=== PATIENT | male | born 1965 | race Caucasian/White ===

== ENCOUNTER 2023-03-25 10:31 | Inpatient (IN) ==
--- NOTE | 2023-03-25 11:06 | Emergency Department Note ---
Impression & Plan Acute non-ST elevation myocardial infarction (NSTEMI), Chest pain ED Provider Note NAME: RICHARD MAHAJAN AGE: 57 SEX: M : 1965 ARRIVES VIA: Walk-In INFORMANT: Patient, ED PROVIDER(S): Baljeet Zhang MD CHIEF COMPLAINT: Chest pain, palpitations MEDICAL DECISION MAKING: Patient presents with the above symptoms in setting of prior history of A-fib and thought that he was having a bout of this this morning. IV was established and blood was obtained along with an EKG troponin and chest x-ray. EKG shows sinus rhythm with PVCs. Blood work shows a normal white count H&H and platelet count. Kidney function with creatinine 1.45. The patient was ordered some IV fluids. Mild transaminitis with AST and ALT 65 and 81 respectively. Bilirubin normal. High- sensitivity troponin 26.7. Repeat was 179. Given this concern and given the patient's history the patient was ordered a heparin drip. Patient was also ordered aspirin. I did speak with the on-call hospitalist service SUNIL Melo and the patient was admitted by Dr. Mcgowan. Critical Care: I have personally spent 35 minutes of critical care time in direct management of this patient. This includes bedside care, interpretation of diagnostic studies, and testing, discussion with consultants, patient, and family members, and other require inpatient management activities. This 35 minutes is in excess of all separately billable procedures. Discussion w/ other healthcare providers: SUNIL Rogers and Dr. Mcgowan inpatient medicine service Prior /Outside records reviewed: I reviewed a cardiology visit from Dr. Lu from September 02, 2022. Patient does have a known history of paroxysmal A-fib paroxysmal SVT. Patient's CHADS2 Vascor that time was 1. According to records has been on Eliquis for only brief time and is documented episode of A-fib was lasted up to only a couple of hours. Was suggested at the patient's more frequent episodes and certainly more prolonged episodes recommend indefinite anticoagulation therapy. Differential diagnosis: Premature contractions, electrolyte abnormality, cardiac dysrhythmia, thyroid dysfunction, infection, toxicologic, anxiety among others were considered. Diagnostics, as interpreted by me: ECG: Sinus rhythm with PVCs, rate of 90, normal intervals, normal axis. No ST elevations. Cardiac monitoring: An order was placed for continuous cardiac monitoring. The monitor shows a rate of 85 with sinus rhythm. Patient was placed on pulse oximetry Medical decision rules: Heart score Imaging studies: I informally interpreted the patient's chest x-ray shows no obvious pneumonia or pneumothorax with formal report to follow. HPI: Patient presents due to concern for palpitations and thinking that he may be in A-fib. The patient noticed this around 830 this morning. Patient states that he was doing his normal day-to-day where he was moving about when he developed some centralized chest pain that was uncomfortable. Patient [place] any radiation of symptoms the patient did feel diaphoretic no nausea or vomiting. Patient states that he started feel better about 30 minutes ago upon presenting here to the emergency department and do think that he may have been in A-fib. The patient does have a prior history but is not anticoagulated and states that he does take metoprolol and follows with Dr. Lu with cardiology. Patient denies any infectious symptoms no abdominal pain no lower extremity swelling. No prior DVT or PE PAST MEDICAL HISTORY: See Below PAST SURGICAL HISTORY: See Below SOCIAL HISTORY: See Below HOME MEDICATIONS: See Below ALLERGIES: See Below VITALS: See Below PHYSICAL EXAMINATION: GENERAL: NAD, non-toxic. EYE EXAM: Normal conjunctiva. PERRL, no anisocoria and EOM's grossly intact w/o pain. OROPHARYNX: Moist mucus membranes, grossly normal dentition. NECK: Supple, no nuchal rigidity, no adenopathy, non-tender. No signs of meningismus. FROM of the neck with good chin to chest and neck extension. No stridor. LUNGS: Clear to auscultation. Normal chest wall mechanics. HEART: NSR, no MRG. ABDOMEN: Abdomen soft, non-tender, no masses, no rebound or guarding. BACK: No CVA TTP. SKIN: No rashes and no bruising. UPPER EXTREMITIES: Upper extremities are grossly normal. LOWER EXTREMITIES: Grossly normal, no edema. NEURO EXAM: A&O x3, cranial nerves II-XII grossly intact, normal speech, moves all 4 extremities. 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: No Beliefs That Will Affect Care: None Current Living Situation: Alone Feels Safe at Home: Yes Assistive Devices: None Allergies Allergies Allergy/AdvReac Type Severity Reaction Status Date / Time No Known Drug Allergies Allergy Unknown Verified 03/29/19 09:50 contrast dye Allergy Mild Rash Uncoded 03/25/23 13:53 Home Meds Home Medications Medication Instructions Recorded Confirmed multivitamin (Daily Multi-Vitamin 1 tab PO DAILY 03/21/19 03/25/23 tablet) aspirin 81 mg tablet,delayed 81 mg PO DAILY 09/02/22 03/25/23 release (Adult Aspirin Regimen) atorvastatin 40 mg tablet 20 mg PO DAILY 09/02/22 03/25/23 metoprolol succinate 50 mg 50 mg PO DAILY 09/02/22 03/25/23 tablet,extended release 24 hr Previous Rx's Medication Instructions Recorded duloxetine 60 mg capsule,delayed 60 mg PO DAILY 90 days #90 caps 03/21/19 release (Cymbalta) metoprolol succinate 25 mg 25 mg PO DAILY #30 tabs 03/26/23 tablet,extended release 24 hr Results & Data (ED) Vital Signs Vital Signs - 24 hr 03/25/23 10:38 03/25/23 11:02 03/25/23 11:02 Temperature 36.9 C Temperature Source Temporal Artery Scan Pulse Rate 91 H Pulse Rate [Apical] Pulse Rate from SpO2 Sensor Respiratory Rate 20 Respiratory Effort / Characteristics Non-Labored Spontaneous Respiratory Depth Normal Blood Pressure 113/69 Blood Pressure [Right Arm] Blood Pressure Mean 83 Blood Pressure Mean [Right Arm] Pulse Oximetry 97 Oxygen Delivery Method Room Air Room Air Room Air Sepsis Recent Fever Within 48 Hours No Sepsis New/Unexplained Change in Mental Status No Sepsis Action Taken by Nursing No Action Required 03/25/23 11:03 03/25/23 11:03 03/25/23 11:04 Temperature Temperature Source Pulse Rate 88 Pulse Rate [Apical] 89 Pulse Rate from SpO2 Sensor 88 Respiratory Rate 22 24 Respiratory Effort / Characteristics Respiratory Depth Blood Pressure Blood Pressure [Right Arm] 109/79 Blood Pressure Mean Blood Pressure Mean [Right Arm] 89 Pulse Oximetry 97 97 Oxygen Delivery Method Room Air Room Air Room Air Sepsis Recent Fever Within 48 Hours Sepsis New/Unexplained Change in Mental Status Sepsis Action Taken by Nursing 03/25/23 11:30 03/25/23 11:30 Temperature Temperature Source Pulse Rate 81 Pulse Rate [Apical] Pulse Rate from SpO2 Sensor 81 Respiratory Rate 13 Respiratory Effort / Characteristics Respiratory Depth Blood Pressure 115/91 Blood Pressure [Right Arm] Blood Pressure Mean 101 Blood Pressure Mean [Right Arm] Pulse Oximetry 97 Oxygen Delivery Method Room Air Sepsis Recent Fever Within 48 Hours Sepsis New/Unexplained Change in Mental Status Sepsis Action Taken by Half-Way Medications Current Medication List: was personally reviewed by me Laboratory Data Attestation: I reviewed the patient's lab results. 03/26/23 03:46 03/26/23 03:40 Lab Results 03/25/23 03/25/23 Range/Units 11:01 12:31 WBC 6.74 (4.8-10.8) K/ul RBC 4.88 (4.70-6.10) M/uL Hgb 15.3 (14.0-18.0) g/dl Hct 45.9 (42.0-52.0) % MCV 94.1 (80.0-100.0) fL MCH 31.4 (25.0-34.0) pg MCHC 33.3 (32.0-36.0) g/dL RDW Std Deviation 44.3 (36.4-46.3) fL RDW Coeff of Teofilo 12.9 (11.5-14.5) % Plt Count 244 (130-400) K/uL MPV 10.0 (9.4-12.4) fL Immature Gran % (Auto) 0.6 % Neut % (Auto) 74.3 % Lymph % (Auto) 18.1 % [place] % (Auto) 5.2 % Eos % (Auto) 1.2 % Baso % (Auto) 0.6 % Neut # (Auto) 5.01 (1.40-6.50) K/uL Lymph # (Auto) 1.22 (1.20-3.40) K/uL [place] # (Auto) 0.35 (0.11-0.59) K/uL Eos # (Auto) 0.08 (0.00-0.50) K/uL Baso # (Auto) 0.04 (0.00-0.20) K/uL Immature Gran # (Auto) 0.04 (0.01-0.20) K/uL PT 10.7 (9.0-12.0) Seconds INR 1.0 (0.9-1.1) APTT 26 (21-31) Seconds PTT Ratio 0.9 Sodium 139 (136-145) mmol/L Potassium 4.2 (3.5-5.1) mmol/L Chloride 105 (98-107) mmol/L Carbon Dioxide 27 (21-32) mmol/L Anion Gap 7 (3-11) BUN 20 (6-23) mg/dl Creatinine 1.45 H (0.6-1.4) mg/dl Est Cr Clr Drug Dosing 66.9 ml/min Est GFR ( Amer) 61.1 ml/min Est GFR (Non-Af Amer) 52.7 ml/min BUN/Creatinine Ratio 13.8 (10-20) Glucose 168 H (70-99(Fasting)) mg/dl Calcium 9.5 (8.6-10.3) mg/dl Total Bilirubin 0.7 (0.2-1.0) mg/dl AST 65 H (13-39) U/L ALT 81 H (7-52) U/L Alkaline Phosphatase 63 (34-104) U/L Troponin I High Sens 26.7 H 179.9 H* D (0-20) pg/ml Total Protein 7.3 (6.0-8.3) gm/dl Albumin 4.5 (3.4-5.0) gm/dl Globulin 2.8 (2.5-4.0) gm/dl Albumin/Globulin Ratio 1.6 (0.9-2) Administered Medications Discontinued Medications Aspirin (Aspirin Chew 324 Mg) 324 mg PO NOW STA Stop: 03/25/23 13:56 Last Admin: 03/25/23 14:04 Dose: 324 mg Documented By: DERICK Aspirin (Aspirin 81 Mg Ectab) 81 mg PO DAILY NIMA Stop: 04/25/23 08:59 Last Admin: 03/26/23 07:17 Dose: 81 mg Documented By: YVROSE Atorvastatin Calcium (Atorvastatin 20 Mg Tab) 20 mg PO DAILY [facility] Stop: 04/25/23 08:59 Last Admin: 03/26/23 07:17 Dose: 20 mg Documented By: YVROSE Fentanyl Citrate (Fentanyl Citrate Pf 100 Mcg/2 Ml Vial) Confirm Administered Dose 100 mcg .ROUTE .STK-MED ONE Stop: 03/26/23 10:32 Last Increment: 03/26/23 11:06 Dose: 25 mcg Documented By: BILLY Heparin Sodium (Porcine) (Heparin Sod (Porcine) 1000 Unit/Ml) 3,000 units IV NOW ONE Stop: 03/25/23 21:01 Last Admin: 03/25/23 21:17 Dose: 3,000 units Documented By: RABIA Co-signed By: NEVAEH Heparin Sodium (Porcine) (Heparin (Porcine) 1000 Unit/Ml 10 Ml (Telegraph Installer Use Only)) Confirm Administered Dose 10,000 units .ROUTE .STK-MED ONE Stop: 03/26/23 10:31 Last Admin: 03/26/23 11:06 Dose: Not Given Documented By: BILLY Heparin Sodium/Sodium Chloride (Heparin In Nss Infusion 1000 Unit/500 Ml (2 U/Ml) Bag) Confirm Administered Dose 3,000 units IV .STK-MED ONE Stop: 03/26/23 10:33 Last Admin: 03/26/23 11:07 Dose: 3,000 units Documented By: BILLY Heparin Sodium/Dextrose (Heparin Sodium/Dextrose) 25,000 units in 500 mls @ 23 mls/hr IV .[id number] [facility]; Protocol Stop: 04/24/23 13:59 Last Titration: 03/26/23 11:34 Dose: Infused Documented By: YVROSE Co-signed By: RACHEL Titration: 03/26/23 10:17 Dose: 0 units/hr, 0 mls/hr Documented By: YVROSE Co-signed By: MAKSIM Titration: 03/26/23 04:44 Dose: 1,250 units/hr, 25 mls/hr Documented By: RABIA Co-signed By: NEVAEH Titration: 03/25/23 21:17 Dose: 1,150 units/hr, 23 mls/hr Documented By: PICTURE FRAME MAKER Co-signed By: NEVAEH Titration: 03/25/23 19:11 Dose: 1,000 units/hr, 20 mls/hr Documented By: PICTURE FRAME MAKER Co-signed By: YVROSE Admin: 03/25/23 14:05 Dose: 1,000 units/hr, 20 mls/hr Documented By: DERICK Co-signed By: RENETTA Sodium Chloride (Nss) 1,000 mls @ 75 mls/hr IV .[id number] ONE Stop: 03/26/23 10:06 Last Infusion: 03/26/23 10:17 Dose: Infused Documented By: Admin: 03/25/23 21:21 Dose: 75 mls/hr Documented By: RABIA Ioversol (Optiray 350) Confirm Administered Dose 1 ml .ROUTE .STK-MED ONE Stop: 03/26/23 10:54 Last Admin: 03/26/23 11:07 Dose: 90 ml Documented By: BILLY Metoprolol Succinate (Metoprolol Succ 50mg Ext Rel Tab) 50 mg PO DAILY NIMA Stop: 04/25/23 08:59 Last Admin: 03/26/23 07:17 Dose: 50 mg Documented By: YVROSE Midazolam HCl (Midazolam Hcl 1 Mg/Ml 2ml Vial) Confirm Administered Dose 2 mg .ROUTE .STK-MED ONE Stop: 03/26/23 10:32 Last Increment: 03/26/23 11:07 Dose: 1 mg Documented By: BILLY Nicardipine HCl (Nicardipine Hcl Inj 2.5 Mg/Ml 10 Ml Amp) Confirm Administered Dose 25 mg .ROUTE .STK-MED ONE Stop: 03/26/23 10:31 Last Admin: 03/26/23 11:06 Dose: 25 mg Documented By: BILLY Nitroglycerin/Dextrose (Nitroglycerin/D5w 100mcg/Ml 20ml Syr) Confirm Administered Dose 2,000 mcg .ROUTE .STK-MED ONE Stop: 03/26/23 10:33 Last Admin: 03/26/23 11:07 Dose: 2,000 mcg Documented By: BILLY Imaging Data Radiologist's Impression: Chest X-Ray 03/25/23 11:01 XR chest 1V portable HISTORY: 57 years-old Male afib? Acute chest pain with tachycardia COMPARISON: None TECHNIQUE: AP view of the chest FINDINGS: Cardiac silhouette is enlarged. No pneumothorax, pleural effusion or airspace consolidation. The bones of the chest appear grossly intact. IMPRESSION: Cardiomegaly without acute process. ACT 112: Negative or not required by law. The above report was generated using voice recognition software. It may contain grammatical, syntax or spelling errors. Electronically signed by: Farooq Gil M.D. 03/25/2023 11:29 AM Discharge Plan Visit Data Chief Complaint: Arrhythmia/Palpitations Stated Complaint: thinks he is in afib ED Provider: Baljeet Zhang Discharge Problem: Acute non-ST elevation myocardial infarction (NSTEMI), Chest pain Patient Disposition: Admitted As Inpatient Discharge Instructions Interventions: ED Discharge Assessment Last Done: 03/25/23 14:43 Discharge Problem: Chest pain Qualifiers: Chest pain type: unspecified Qualified Code(s): R07.9 - Chest pain, unspecified
[2023-03-25 11:22] LABS: Basophils # (auto) 0.04 K/uL (0.00-0.20); Basophils % (auto) 0.6 %; Eosinophils # (auto) 0.08 K/uL (0.00-0.50); Eosinophils % (auto) 1.2 %; Hematocrit (blood only) 45.9 % (42.0-52.0); Hemoglobin 15.3 g/dl (14.0-18.0); Immature Granulocytes # (auto) 0.04 K/uL (0.01-0.20); Immature Granulocytes % (auto) 0.6 %; Lymphocytes # (auto) 1.22 K/uL (1.20-3.40); Lymphocytes % (auto) 18.1 %; Mean Corpuscular Hemoglobin 31.4 pg (25.0-34.0); Mean Corpuscular Hgb Conc 33.3 g/dL (32.0-36.0); Mean Corpuscular Volume 94.1 fL (80.0-100.0); Monocytes # (auto) 0.35 K/uL (0.11-0.59); Monocytes % (auto) 5.2 %; Neutrophils # (auto) 5.01 K/uL (1.40-6.50); Neutrophils % (auto) 74.3 %; Platelet Count 244 K/uL (130-400); RDW Coefficient of Variation 12.9 % (11.5-14.5); RDW Standard Deviation 44.3 fL (36.4-46.3); Red Blood Count 4.88 M/uL (4.70-6.10); White Blood Count 6.74 K/ul (4.8-10.8)
--- NOTE | 2023-03-25 11:30 | XRay Report ---
XR chest 1V portable HISTORY: 57 years-old Male afib? Acute chest pain with tachycardia COMPARISON: None TECHNIQUE: AP view of the chest FINDINGS: Cardiac silhouette is enlarged. No pneumothorax, pleural effusion or airspace consolidation. The bone s of the chest appear grossly intact. IMPRESSION: Cardiomegaly without acute process. ACT 112: Negative or not required by law. The above report was generated using voice recognition software. It may contain grammatical, syntax o r spelling errors. Electronically signed by: Farooq Gil M.D. 03/25/2023 11:29 AM
[2023-03-25 11:36] LABS: Albumin Globulin Ratio 1.6 (0.9-2); Albumin Level 4.5 gm/dl (3.4-5.0); BUN Creatinine Ratio 13.8 (10-20); Bilirubin,Total 0.7 mg/dl (0.2-1.0); Calcium 9.5 mg/dl (8.6-10.3); Creatinine Clr Calc Pharmacy 66.9 ml/min; Est GFR (African American) 61.1 ml/min; Est GFR (Non-African American) 52.7 ml/min; Globulin 2.8 gm/dl (2.5-4.0); Potassium 4.2 mmol/L (3.5-5.1); Total Protein 7.3 gm/dl (6.0-8.3)
[2023-03-25 11:43] LABS: Troponin I High Sensitivity 26.7 pg/ml (0-20)
[2023-03-25 11:49] LABS: Partial Thromboplastin Ratio 0.9; Partial Thromboplastin Time 26 Seconds (21-31); Prothrombin Time 10.7 Seconds (9.0-12.0)
[2023-03-25] MEDS ORDERED: Heparin IV Adult Wt-Based Low-Dose *NO* INITIAL Bolus Protocol IV STA (13:29)
[2023-03-25] MEDS ORDERED: ASPIRIN CHEW 324 MG PO STA (13:55)
[2023-03-25] MEDS ORDERED: HEPARIN SODIUM/DEXTROSE 25,000 UNITS/500 ML BAG IV SCH (14:00)
[2023-03-25] MEDS ORDERED: ACETAMINOPHEN 325 MG TAB PO PRN (14:55)
[2023-03-25] MEDS ORDERED: NITROGLYCERIN SL 0.4 MG/TAB TAB SL PRN (14:55)
--- NOTE | 2023-03-25 15:19 | Cardiology Consultation ---
Date of Consultation March 25, 2023 Assessment & Plan (1) Paroxysmal SVT (supraventricular tachycardia): (2) Chest discomfort: (3) Elevated troponin: Plan 1. Tachycardia: He is describing a rapid heart rate which to him feels similar to prior episodes. He apparently has a history of SVT and atrial fibrillation but he cannot distinguish them, perhaps SVT leads to atrial fibrillation. Since this episode was not recorded I am not sure what it was. It was relatively dionte ef so I do not think anticoagulation is necessary and he seems to have quite infrequent episodes (a few years in between). I do not think we need any specific treatment for his tachycardia at the moment although with the rate ablation is not unreasonable but he has declined that in the past. I did not raise that issue with him today, in part because I do not know what type of arrhythmia we are dealing with. It would be difficult to monitor (it would require an implantable loop recorder). 2. Chest discomfort: His chest discomfort is suggestive of angina. It may simply be rate related although it could represent ischemia in a setting of coronary artery disease. He has had a negative stress test in the past however there are false negatives on those tests and if he has mild to moderate coronary disease a standard stress test may not be sufficient to bring out ischemia. I think this should be evaluated further, especially in view of his elevated troponin. I would strongly consider catheterization tomorrow and I will keep him n.p.o. and make a final decision in the morning. 3. Elevated troponin: Second troponin is elevated, he does not have an infarction pattern on his electrocardiogram so I do not think this is an ischemic event and it appears most likely that it is demand ischemia however that could be in the setting of underlying coronary disease since he does have risk factors. I would trend the troponins to see what the profile looks like. History of Present Illness Reason for Consultation: Elevated troponin, possible arrhythmia Attending Physician: Mary Mcgowan MD History of Present Illness This is a 57-year-old male who has a long history of of arrhythmias, hypertension and dyslipidemia but no known coronary artery disease to my knowledge. He is followed by Dr. Lu in the office. He has had a history of SVT with heart rates in excess of 200 bpm and has received adenosine for termination of his arrhythmia. With these rapid heart rates he has had elevated troponins and had a nuclear stress test on November 10, 2019 at [facility] which was negative for ischemia. I am not sure of the mechanism of this arrhythmia. According to records he also has a history of paroxysmal atrial fibrillation, evidently these have been relatively brief episodes and with a [id number] score of 1 for hypertension he has not been on anticoagulation. He presented to the emergency room this morning having symptoms which he felt were compatible with atrial fibrillation. He noticed this around 830 this morning and then he developed some central chest discomfort when he began to be active. He did feel better before initial evaluation in the emergency room. Evaluation here includes an electrocardiogram in the emergency room which shows sinus rhythm at 90 bpm with 2 premature ventricular beats and borderline inferior ST-T abnormalities. Laboratory studies include a slightly elevated creatinine of 1.45 and an initial high-sensitivity troponin which was only slightly elevated to 27 however increased to 180 an hour and a half later. Blood pressure and heart rate have been well-controlled during his stay in the emergency room. A chest x-ray today is unremarkable. At the time of my evaluation he is feeling well. He describes the palpitations as being a very rapid rhythm, he is not sure if it was irregular or regular, he could see his chest vibrating with the beats. It was reminiscent of what he has experienced in the past and he tells me he cannot differentiate between SVT and atrial fibrillation. He does confirm that by the time he got to the hospital the episode had mostly resolved. He did have chest discomfort during the event but only for 15 minutes or little bit longer, the chest discomfort had resolved before the tachycardia did. He has had no further chest discomfort or palpitations in the emergency room. He does not have exertional palpitations although he does not do any formal exercise he does not have any exertional chest discomfort or shortness of breath and his activities are not limited. Allergies Allergy/AdvReac Type Severity Reaction Status Date / Time No Known Drug Allergies Allergy Unknown Verified 03/29/19 09:50 contrast dye Allergy Mild Rash Uncoded 03/25/23 13:53 Home Medications Medication Instructions Recorded Confirmed Type duloxetine 60 mg capsule,delayed 60 mg PO DAILY 90 days #90 caps 03/21/19 03/25/23 Rx release (Cymbalta) multivitamin (Daily Multi-Vitamin 1 tab PO DAILY 03/21/19 03/25/23 History tablet) aspirin 81 mg tablet,delayed 81 mg PO DAILY 09/02/22 03/25/23 History release (Adult Aspirin Regimen) atorvastatin 40 mg tablet 20 mg PO DAILY 09/02/22 03/25/23 History metoprolol succinate 50 mg 50 mg PO DAILY 09/02/22 03/25/23 History tablet,extended release 24 hr Patient History Medical History Meralgia paresthetica Sleep apnea Dyslipidemia Hypertension Paroxysmal atrial fibrillation Paroxysmal SVT (supraventricular tachycardia) Surgical History Hx of tonsillectomy History of knee surgery History of shoulder surgery Family History Father Prostate cancer Social History Smoking Status: Never smoker Feels Safe at Home: Yes Review of Systems Review of Systems: All systems reviewed & are unremarkable except as noted in HPI & below Physical Exam Physical Exam: Constitutional: Alert, cooperative and in no distress. HEENT: Unremarkable Neck: No jugular venous distention, carotid pulses are normal and equal bilaterally without bruits. Pulmonary: Clear to auscultation bilaterally. Cardiac: Regular rhythm with no murmur, gallop or rub. Abdomen: Soft, nontender with normal bowel sounds. Extremities: No edema. Distal pulses intact. Neurologic: No focal findings. Gait is steady. Skin: No rash, ecchymoses or petechiae. Results & Data Vital Signs (Past 12 Hours) Vital Signs Temp Pulse Pulse Resp BP BP Pulse Ox 03/25/23 15:00 71 24 99 03/25/23 15:00 127/92 03/25/23 14:43 03/25/23 14:31 125/95 03/25/23 14:30 68 18 99 03/25/23 14:13 72 03/25/23 14:00 113/80 03/25/23 14:00 76 17 94 03/25/23 13:30 74 16 03/25/23 13:30 111/74 03/25/23 13:00 80 24 98 03/25/23 13:00 107/86 03/25/23 12:37 77 03/25/23 12:30 133/94 03/25/23 12:30 78 21 98 03/25/23 12:00 82 19 97 03/25/23 12:00 118/87 03/25/23 11:30 81 13 97 03/25/23 11:30 115/91 03/25/23 11:04 88 24 97 03/25/23 11:03 89 22 109/79 97 03/25/23 11:03 03/25/23 11:02 03/25/23 11:02 03/25/23 10:38 36.9 C 91 H 20 113/69 97 O2 Del Method 03/25/23 15:00 Room Air 03/25/23 15:00 03/25/23 14:43 Room Air 03/25/23 14:31 03/25/23 14:30 Room Air 03/25/23 14:13 03/25/23 14:00 03/25/23 14:00 Room Air 03/25/23 13:30 03/25/23 13:30 03/25/23 13:00 Room Air 03/25/23 13:00 03/25/23 12:37 03/25/23 12:30 03/25/23 12:30 Room Air 03/25/23 12:00 Room Air 03/25/23 12:00 03/25/23 11:30 Room Air 03/25/23 11:30 03/25/23 11:04 Room Air 03/25/23 11:03 Room Air 03/25/23 11:03 Room Air 03/25/23 11:02 Room Air 03/25/23 11:02 Room Air 03/25/23 10:38 Room Air Laboratory Results Cardiac Enzymes 03/25/23 03/25/23 Range/Units 11:01 12:31 AST 65 H (13-39) U/L Troponin I High Sens 26.7 H 179.9 H* D (0-20) pg/ml Coagulation 03/25/23 Range/Units 11:01 PT 10.7 (9.0-12.0) Seconds APTT 26 (21-31) Seconds CBC 03/25/23 Range/Units 11:01 WBC 6.74 (4.8-10.8) K/ul RBC 4.88 (4.70-6.10) M/uL Hgb 15.3 (14.0-18.0) g/dl Hct 45.9 (42.0-52.0) % Plt Count 244 (130-400) K/uL Neut # (Auto) 5.01 (1.40-6.50) K/uL Lymph # (Auto) 1.22 (1.20-3.40) K/uL [place] # (Auto) 0.35 (0.11-0.59) K/uL Eos # (Auto) 0.08 (0.00-0.50) K/uL Baso # (Auto) 0.04 (0.00-0.20) K/uL Comprehensive Metabolic Panel 03/25/23 Range/Units 11:01 Sodium 139 (136-145) mmol/L Potassium 4.2 (3.5-5.1) mmol/L Chloride 105 (98-107) mmol/L Carbon Dioxide 27 (21-32) mmol/L BUN 20 (6-23) mg/dl Creatinine 1.45 H (0.6-1.4) mg/dl Glucose 168 H (70-99(Fasting)) mg/dl Calcium 9.5 (8.6-10.3) mg/dl AST 65 H (13-39) U/L ALT 81 H (7-52) U/L Alkaline Phosphatase 63 (34-104) U/L Total Protein 7.3 (6.0-8.3) gm/dl Albumin 4.5 (3.4-5.0) gm/dl Intake and Output 03/25/23 03/25/23 03/25/23 06:59 14:59 22:59 Other: Weight 103.3 kg Weight Measurement Method Chair Scale Patient Weight 03/26/23 06:59 Weight 103.3 kg Diagnostic Findings Echocardiogram: I reviewed his echocardiogram as it was being done in the emergency room, the left ventricular function appears normal with no significant abnormalities otherwise. PG Care Time/CCT Total # of Minutes Spent Total Time Spent with Patient: Total time spent is greater than 50% in coordination of care (as documented) at patient's floor/unit and/or counseling patient: Coding Level of Care Code 12970 IN/OBS CONSULT LVL 4,60M Diagnoses Paroxysmal SVT (supraventricular tachycardia) I47.1 Chest discomfort R07.89 Elevated troponin R79.89
--- NOTE | 2023-03-25 15:23 | History & Physical Report ---
Date of Service March 25, 2023 Assessment & Plan (1) Elevated troponin: (2) Chest discomfort: Plan: Admit to telemetry Patient presenting for evaluation of chest discomfort, palpitations, diaphoresis. Symptoms self resolved after 2 hours. History of paroxysmal atrial fibrillation. In the ED, EKG showed NSR with PVCs. Patient hemodynamically stable. HS troponin 26.7 --> 179.9 Given troponin elevation, patient started on IV heparin in the ED Possible NSTEMI Continue to trend troponin, resting echo Continue home beta-rakesh Cardiology consult (patient follows with [facility] [place]) (3) Paroxysmal atrial fibrillation: (4) Paroxysmal SVT (supraventricular tachycardia): Plan: History of paroxysmal atrial fibrillation and paroxysmal SVT controlled with metoprolol Currently not anticoagulated due to short, infrequent episodes of atrial fibrillation (5) Dyslipidemia: Plan: Continue statin DVT PROPHYLAXIS On IV heparin Patient seen in collaboration with Dr. Mcgowan. I spent a total of 75minutes coordinating, documenting, and providing care for this patient excluding time spent in the performance of separately billed services. This included personally reviewing all current laboratories and imaging studies, medication reconciliation, outpatient chart review, and discussion with specialists. Admission and Anticipated Discharge Date Admission Date: March 25, 2023 History of Present Illness Chief Complaint: Chest discomfort Primary Care Provider: Kamran Singh, DO 57-year-old male with PMH HLD, prediabetes, untreated SUZAN, paroxysmal atrial fibrillation not anticoagulated, paroxysmal SVT, and other problems listed below who presents to the ED for evaluation of chest discomfort. History is obtained from the patient and review of outpatient PCP and cardiology records. Patient reports that while he was at work this morning, he developed a midsternal chest discomfort with associated diaphoresis. Patient reports symptoms were similar to when he has been in atrial fibrillation in the past however he typically does not have diaphoresis. Patient reports associated palpitations. Symptoms lasted for about 2 hours and then presented to the ED for further evaluation. Patient also reports associated nausea. Denies lightheadedness and dizziness. No other recent illnesses, fevers, chills. He denies abdominal pain, vomiting, diarrhea. No urinary symptoms. Symptoms self resolved upon arrival to the ED. In the ED, patient is hemodynamically stable. EKG shows NSR with PVCs. Initial HS troponin 26.7 --> 179.9. Patient was given full dose aspirin and started on heparin ip. Allergies Allergy/AdvReac Type Severity Reaction Status Date / Time No Known Drug Allergies Allergy Unknown Verified 03/29/19 09:50 contrast dye Allergy Mild Rash Uncoded 03/25/23 13:53 Home Medications Medication Instructions Recorded Confirmed Type duloxetine 60 mg capsule,delayed 60 mg PO DAILY 90 days #90 caps 03/21/19 03/25/23 Rx release (Cymbalta) multivitamin (Daily Multi-Vitamin 1 tab PO DAILY 03/21/19 03/25/23 History tablet) aspirin 81 mg tablet,delayed 81 mg PO DAILY 09/02/22 03/25/23 History release (Adult Aspirin Regimen) atorvastatin 40 mg tablet 20 mg PO DAILY 09/02/22 03/25/23 History metoprolol succinate 50 mg 50 mg PO DAILY 09/02/22 03/25/23 History tablet,extended release 24 hr Past Med/Surg History Medical History Meralgia paresthetica Sleep apnea Dyslipidemia Hypertension Paroxysmal atrial fibrillation Paroxysmal SVT (supraventricular tachycardia) Surgical History Hx of tonsillectomy History of knee surgery History of shoulder surgery Family History Father Prostate cancer Social History Smoking Status: Never smoker Feels Safe at Home: Yes Physical Exam Constitutional: WD/WN, vitals as above Eyes: PERRL, conjunctivae normal, anicteric sclerae ENMT: external ear and nose normal, oropharynx normal Respiratory: normal respiratory effort, lungs clear to auscultation Cardiovascular: Rate/Rhythm: regular rate and regular rhythm Vessels: normal peripheral pulses Extremities: no edema Gastrointestinal (Abdomen): normal bowel sounds, soft, nontender, no hepatosplenomegaly Musculoskeletal: no cyanosis or clubbing, extremities motor strength 5/5 Skin: no rashes, warm and dry Neurologic: PERRL, EOMI, accommodation nl, no face palsy, no dysarthria Psychiatric: A+Ox3, euthymic affect Results & Data Results & Data Vital Signs (Past 12 Hours) Vital Signs Temp Pulse Pulse Resp BP BP Pulse Ox 03/25/23 15:00 71 24 99 03/25/23 15:00 127/92 03/25/23 14:43 03/25/23 14:31 125/95 03/25/23 14:30 68 18 99 03/25/23 14:13 72 03/25/23 14:00 113/80 03/25/23 14:00 76 17 94 03/25/23 13:30 74 16 03/25/23 13:30 111/74 03/25/23 13:00 80 24 98 03/25/23 13:00 107/86 03/25/23 12:37 77 03/25/23 12:30 133/94 03/25/23 12:30 78 21 98 03/25/23 12:00 82 19 97 03/25/23 12:00 118/87 03/25/23 11:30 81 13 97 03/25/23 11:30 115/91 03/25/23 11:04 88 24 97 03/25/23 11:03 89 22 109/79 97 03/25/23 11:03 03/25/23 11:02 03/25/23 11:02 03/25/23 10:38 36.9 C 91 H 20 113/69 97 O2 Del Method 03/25/23 15:00 Room Air 03/25/23 15:00 03/25/23 14:43 Room Air 03/25/23 14:31 03/25/23 14:30 Room Air 03/25/23 14:13 03/25/23 14:00 03/25/23 14:00 Room Air 03/25/23 13:30 03/25/23 13:30 03/25/23 13:00 Room Air 03/25/23 13:00 03/25/23 12:37 03/25/23 12:30 03/25/23 12:30 Room Air 03/25/23 12:00 Room Air 03/25/23 12:00 03/25/23 11:30 Room Air 03/25/23 11:30 03/25/23 11:04 Room Air 03/25/23 11:03 Room Air 03/25/23 11:03 Room Air 03/25/23 11:02 Room Air 03/25/23 11:02 Room Air 03/25/23 10:38 Room Air Laboratory Results Short CBC 03/25/23 Range/Units 11:01 WBC 6.74 (4.8-10.8) K/ul Hgb 15.3 (14.0-18.0) g/dl Hct 45.9 (42.0-52.0) % Plt Count 244 (130-400) K/uL BMP 03/25/23 11:01 Sodium 139 Potassium 4.2 Chloride 105 Carbon Dioxide 27 BUN 20 Creatinine 1.45 H Glucose 168 H Calcium 9.5 Liver Function 03/25/23 Range/Units 11:01 Total Bilirubin 0.7 (0.2-1.0) mg/dl AST 65 H (13-39) U/L ALT 81 H (7-52) U/L Alkaline Phosphatase 63 (34-104) U/L Albumin 4.5 (3.4-5.0) gm/dl Diagnostic Findings Chest X-Ray 03/25/23 11:01 XR chest 1V portable HISTORY: 57 years-old Male afib? Acute chest pain with tachycardia COMPARISON: None TECHNIQUE: AP view of the chest FINDINGS: Cardiac silhouette is enlarged. No pneumothorax, pleural effusion or airspace consolidation. The bones of the chest appear grossly intact. IMPRESSION: Cardiomegaly without acute process. ACT 112: Negative or not required by law. The above report was generated using voice recognition software. It may contain grammatical, syntax or spelling errors. Electronically signed by: Farooq Gil M.D. 03/25/2023 11:29 AM Code Status & VTE Plan VTE Prophylaxis Plan VTE Prophylaxis will be ordered: No Supervising Physician Co-Signing Physician Notes Attending addendum: The patient was seen and examined in telemetry unit He was admitted with epigastric discomfort associated with sweating and palpitation Denies any more chest pain, palpitation or shortness of breath On examination Sitting at the edge of the bed without any apparent distress Hemodynamically stable Chest-clear to auscultate bilaterally Heart-S1-S2, regular Abdomen-nontender, bowel sound present Extremities-trace edema bilaterally 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 after midnight Agree with assessment and plan as outlined above by Barbara Mcgowan
--- OUTSIDE RECORDS SUMMARY | 2023-03-25 17:53 | External Medical Summary ---
Author Name Unknown Address Unknown Organization [id number]:[facility] [place] [facility] [address] [facility] [id number] Laboratory Report Ordering Provider Test Date Status CELY LEW JR 01/16/2023 07:33:04 Final Observation Date Value Abnormality Reference (Units ) Status HbA1C 01/16/2023 07:33:04 6.3 Above high normal 4. 0-5.6 (%) Final The use of HbA1c to monitor glycemic status is based on normal hemoglobin and HbA composition. This test should not be used in patients with abnormal hemoglobin that affects the half life of the red blood cell or the in vivo glycation rates. Glucose, estimated average 01/16/2023 07:33:04 134 Above high normal <126 (mg/dL) Gagan joe Performing Location [facility] [place] - [address] [facility] [place] [id number]
--- OUTSIDE RECORDS SUMMARY | 2023-03-25 17:53 | External Medical Summary | Summary of Care ---
Author Name Unknown Organization [facility] Address [address] [facility] [place] [address] Phone [phone] Care Team Providers Care Bobbin Collector Name Role Phone Francisco Clayton DO, David Vincent Primary Care Provid er Reason for Visit * Reason Onset Date Comments Physical-Exam Medication Administration 01/16/2023 Flu an d/or Pneumo Inj Encounter Details Date Type Department Care Team Description 01/16/2023 Office Visit [facility] [address] [place] [address] Kamran Singh Jr., DO [address] [place] [address] Routine medical exam*; Hyperlipidemia with target LDL less than 100; Prediabetes; SUZAN (obstructive sleep apnea); Paroxysmal atrial fibrillation (HCC); Morbid obesity with BMI of 40.0-44.9, adult (HCC); Screening for prostate cancer; Need for prophylactic vaccination and inoculation against influenza; Morbid obesity due to excess calories (HCC) Allergies Active Allergy Reactions Severity Noted Date Comments Iodinated Contrast Media 03/10/2017 rash documented as of this encounter (statuses as of 01/16/2023) Medications Medication Sig Dispensed Refills Start Date End Date Status MULTIPLE VITAMIN PO TABS 1 TABLET DAILY 0 04/21/2011 Active Loratadine 10 MG Cap Take 10 mg by mouth. 1 daily as needed 0 Active Atorvastatin Calcium 40 MG Oral Tablet (Lipitor) TAKE 1/2 TABLET BY MOUTH EVERY DAY 45 Tablet 3 03/07/2022 Active Metoprolol Succinate ER 50 MG Oral Tablet Extended Release 24 Hour (toPROL XL)Indications:Pa roxysmal SVT (supraventricular tachycardia) Take 1 Tablet by mouth in the morning. 90 Tablet 3 06/10/2022 Active DULoxetine HCl 60 MG Oral Capsule Delayed Release Particles (Cymbalta) TAKE 1 CAPSULE BY MOUTH EVERYDAY AT BEDTIME 90 Capsule 1 10/09/2022 Active Aspirin 81 MG Oral Tablet Chewable Take 1 Tab by mouth daily. 1 Tab 0 07/17/2020 01/16/2023 Discontinued (Patient preference/d iscontinuati on) documented as of this encounter (statuses as of 01/16/2023) Active Problems Problem Noted Date SUZAN (obstructive sleep apnea) 08/23/2020 Prediabetes 01/22/2020 Meralgia paresthetica, bilateral lower l imbs 01/18/2020 Morbid obesity with BMI of 40.0-44.9, ad ult 11/04/2019 Paroxysmal atrial fibrillation 4 Hyperlipidemia with target LDL less than 100 08/08/2013 Overview: ICD-10 update of inactive term Paroxysmal SVT (supraventricular tachyca rdia) 12/16/2012 documented as of this encounter (statuses as of 01/16/2023) Resolved Problems Problem Noted Date Resolved Date Sustained SVT 11/04/2019 11/04/2019 Elevated troponin 11/04/2019 01/18/2020 Mixed hyperlipidemia 12/16/2012 08/08/2013 Obesity, Class I, BMI 30.0-34.9 (see actual BMI) 12/16/2012 04/28/2013 Special screening for malignant neoplasm of pros saleem 09/25/2009 01/14/2018 Pure hyperglyceridemia 03/27/2008 8 Elevated blood pressure read ing without diagnosis of hypertension 03/27/2008 01/14/2018 documented as of this encounter (statuses as of 01/16/2023) Immunizations Name Administration Dates Next Due Covid-19, Mrna, Lnp-s, Pf, B ivalent, 30 Mcg, IM, 12 yrs and above (Aloompa) 01/23/2022 DTaP Dipth/Tet/Acell Pertussis (Infanrix), Peds 11/26/2012 SEASONAL INFLUENZA, PF, 6 M & Above, IM , (FLULAVAL or FLUZONE) 01/16/2023,01/22/2022,01/18/2021,2019 TD, Preservative Free 08/16/2002 TDAP (age 11 and older)(Adacel) 11/26/2012 Tetanus Toxid Adsorbed 08/16/2002 documented as of this encounter Social History Tobacco Use Types Packs/Day Years Used Date Smoking Tobacco: Never Smokeless Tobacco: Never Tobacco Cessation:Counseling Given: No Alcohol Use Standard Drinks/Week Comments Yes 0 (1 standard drink = 0.6 oz pur e alcohol) Rarely Food Insecurity Answer Date Recorded Within the past 12 months, y ou worried that your food would run out before you got money to buy more. Never true 01/22/2022 Within the past 12 months, t he food you bought just didn't last and you didn't have money to get more. Never true 01/22/2022 Sex Assigned at Date Recorded Male 01/17/2019 10:56 AM EDT Job Start Date Occupation Industry Not on file Not on file Not on file documented as of this encounter Last Filed Vital Signs Vital Sign Reading Time Taken Comments Blood Pressure 122/88 01/16/2023 6:58 AM EDT Pulse 68 01/16/2023 6:58 AM EDT Temperature 36.1 C (96.9 F) 01/16/2023 6:58 AM ED T Respiratory Rate 16 01/16/2023 6:58 AM EDT Oxygen Saturation 96% 01/16/2023 6:58 AM EDT Inhaled Oxygen Concentration - - Weight 130.6 kg (288 lb) 01/16/2023 6:58 AM EDT Height 177.8 cm (5' 10") 01/16/2023 6:58 AM EDT Body Mass Index 41.32 01/16/2023 6:58 AM EDT documented in this encounter Functional Status Functional Status Response Date of Assess ment Are you deaf or do you have serious difficulty h earing? No 11/04/2019 Are you blind or do you have serious difficulty seeing, even when wearing glasses? No 11/04/2019 Do you have serious difficul ty walking or climbing stairs? (5 years old or older) No 11/04/2019 Do you have difficulty dress ing or bathing? (5 years old or older) No 11/04/2019 Because of a physical, menta l, or emotional condition, do you have difficulty doing errands alone such as visiting a doctor s office or shopping? (15 years old or older) No 11/04/19 20 Cognitive Status Response Date of Assessm ent Because of a physical, menta l, or emotional condition, do you have serious difficulty concentrating, remembering, or making decisions? (5 years old or older No 11/04/2019 documented as of this encounter Patient Instructions * Patient Instructions* Kamran Singh Jr., DO - 01/16/2023 7:13 AM EDT BMI (Body Mass Index) is the number obtained by dividing a person's weight in kilograms by his or her height in meters squared. BMI is used in determining obesity. BMI is not used to determine a person's actual percentage of body fat, but it is a good tool to blind installer weight in terms of what is healthy and unhealthy. It is used to identify adults at increased risk for developing weight related medical problems. Estimated body mass index is 41.32 kg/m as calculated from the following: Height as of this encounter: 1.778 m (5' 10"). Weight as of this encounter: 130.6 kg (288 lb). Severe Obesity - BMI 40 kg/m2 and above - Severely obese individuals are at a very high risk for developing: * Heart disease * Stroke * Diabetes * High Blood Pressure * High Cholesterol * GERD (acid reflux) * Sleep Apnea * Osteoarthritis * Fatty Liver Disease * Certain Types of Cancers * Gout * Gall Bladder Disease - Weight loss has been shown to decrease weight related medical problems. - A BMI of 40 kg/m2 or higher decreases lifespan by 10 yrs, compared to those with a normal BMI. - A 12-week weight management text message program is also available. Go to [employer] and seethe message under 'Mailbox News' for more information and enrollment. Patient is Instructed to: Diet: * Limit total fat intake to no more than 40 grams per day (low fat diet). * Increase fruits and vegetables to 5 servings per day, combined. * Limited starches (breads, pasta, rice, potatoes, corn, cereals) to 4 servings per day. Avoid Calorie Containing Drinks: * No fruit juices, regular sodas or sweetened drinks. * Water is preferred - 64 ounces per day unless advised of a fluid restriction. * Diet sodas and drinks permitted. Keep Honest, Accurate Food logs: * www.[employer] * www.[employer] * If you bite it - write it! Weigh Yourself Weekly: * Morning is best. * Try to do this outside your home. * Have a friend/spouse remind you to weigh yourself, accountability to others helps. Perform 30 minutes of physical activity daily: * Can do all at once or 5 minutes 6 times per day * 8, 000-10,000 steps per day using a pedometer * Make it fun! documented in this encounter Progress Notes * Kamran Singh Jr., - 01/16/2023 7:11 AM EDT Subjective: Johnnie Dang is a 57 year old male. Chief Complaint Patient presents with Physical-Exam Medication Administration Flu and/or Pneumo Inj HPI: Patient presents today for yearly check up. Overall doing well, no new complaints. Due for labs- hope to get done fasting today. No other new complaints. PHM: Patient Active Problem List Diagnosis Code Paroxysmal SVT (supraventricular tachycardia) I47.10 Paroxysmal atrial fibrillation (HCC) I48.0 Hyperlipidemia with target LDL less than 100 E78.5 Morbid obesity with BMI of 40.0-44.9, adult (HCC) E66.01, Z68.41 Meralgia paresthetica, bilateral lower limbs G57.13 Prediabetes R73.03 SUZAN (obstructive sleep apnea) G47.33 Current Outpatient Medications Medication Sig Dispense Refill MULTIPLE VITAMIN PO TABS 1 TABLET DAILY Loratadine 10 MG Cap Take 10 mg by mouth. 1 daily as needed Atorvastatin Calcium 40 MG Oral Tablet (Lipitor) TAKE 1/2 TABLET BY MOUTH EVERY DAY 45 Tablet 3 Metoprolol Succinate ER 50 MG Oral Tablet Extended Release 24 Hour (toPROL XL) Take 1 Tablet bymouth in the morning. 90 Tablet 3 DULoxetine HCl 60 MG Oral Capsule Delayed Release Particles (Cymbalta) TAKE 1 CAPSULE BY MOUTH EVERYDAY AT BEDTIME 90 Capsule 1 No current facility-administered medications for this visit. Past Medical History: Diagnosis Date Back pain Elevated blood pressure reading without diagnosis of hypertension Hypothyroidism 01/05/2014 Mixed hyperlipidemia Paroxysmal atrial fibrillation (HCC) Paroxysmal supraventricular tachycardia Past Surgical History: Procedure Laterality Date INCISION OF METATARSAL Left 11/02/2020 OSTEOTOMY OTHER THAN 1ST METATARSAL performed by Dora Lucas DPM at OR 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 INFORMATION Right 2016 rotator cuff INFORMATION Left 08/2020 knee meniscus repair REMOVAL OF TONSILS, UNDER AGE 12 REVISION OF ANKLE JOINT 04/13/1988 pinning and plated THIGH OR KNEE SURGERY NEC 04/13/2007 Right knee THIGH OR KNEE SURGERY NEC 04/13/1976 LEft Family History Problem Relation Age of Onset Cancer Father Heart Disorder Father Hypertension Mother Review of patient's allergies indicates: Allergen Reactions Iodinated Contrast Media rash Extensive ROS Constitutional (f/c/wt/vision/hearing): Negative Resp (cough/sob/ware): Negative CV (cp/palp/fluttering/diaphoresis/ware/pnd):Negative GI (n/v/d/hrtburn): Negative Endo (hair/cold or heat intol/ 3 p's): Negative Neuro (shaking/weak/fatigu/parasthesi/): Negative Skin (rash/easy bruis/xerosis): Negative (nocturia/hesit/drib/sexual review): Negative Objective: BP 122/88 | Pulse 68 | Temp 36.1 C (96.9 F) | Resp 16 | Ht 1.778 m (5' 10") | Wt 130.6 kg (288 lb) | SpO2 96% | BMI 41.32 kg/m | BSA 2.54 m Physical Exam: General: alert, healthy, no distress Head: Normocephalic, No masses, lesions, tenderness or abnormalities Eye Exam: PERRLA, EOMI, Conjunctiva are pink and non-injected, fundi benign, sclera clear Ears: External ears normal, Canals clear, TM's Normal Oropharynx: no exudate, no erythema and lips, buccal mucosa, and tongue normal Neck: supple, no adenopathy, no bruits, thyroid normal size, non-tender, without nodularity Heart: regular rate & rhythm, no murmurs and no gallops Lungs: clear to auscultation Abdomen: abdomen soft, nontender, normal bowel sounds and no masses or organomegaly Extremities: no edema, no clubbing or cyanosis Neuro Exam: alert & oriented x 3 with fluent speech, no focal motor/sensory deficits, gait normal, reflexes normal and symmetric, Skin: skin color, texture, turgor are normal, no rashes or significant lesions ASSESSMENT: ICD-10-CM 1. Routine medical exam Z00.00 2. Hyperlipidemia with target LDL less than 100 E78.5 3. Prediabetes R73.03 4. SUZAN (obstructive sleep apnea) G47.33 5. Paroxysmal atrial fibrillation (HCC) I48.0 6. Morbid obesity with BMI of 40.0-44.9, adult (HCC) E66.01 Z68.41 7. Screening for prostate cancer Z12.5 8. Need for prophylactic vaccination and inoculation against influenza Z23 PLAN: (Z00.00) Routine medical exam (primary encounter diagnosis) Plan: Except as below doing well. Recheck in 1 year. (E78.5) Hyperlipidemia with target LDL less than 100 Plan: COMPREHENSIVE METABOLIC PANEL, LIPID PANEL WITH DIRECT LDL IF TG IS HIGH Will recheck labs and treat accordingly (R73.03) Prediabetes Plan: HEMOGLOBIN A1C Will recheck labs and treat accordingly (G47.33) SUZAN (obstructive sleep apnea) (I48.0) Paroxysmal atrial fibrillation (HCC) Plan: RRR today, continue rate control and ASA (E66.01, Z68.41) Morbid obesity with BMI of 40.0-44.9, adult (HCC) Plan: Advise patient to increase exercise and watch diet in attempt to lose weight.. (Z12.5) Screening for prostate cancer Plan: PSA As above. (Z23) Need for prophylactic vaccination and inoculation against influenza Plan: INFLUENZA VACC, QUAD, PF, 6 MONTHS & UP, 0.5 ML, IM As above. Follow-up: Return in about 1 year (around 01/17/2024), or if symptoms worsen or fail to improve. | Check-out note: For fasting labs today. Return to the office as ordered. Return sooner if having any other problems or concerns. Kamrna Singh Jr, DO Patient counseling on weight management given. * Rosemary Greenwood LPN - 01/16/2023 6:59 AM EDT PRE - ADMINISTRATION DOCUMENTATION Are you experiencing any cold symptoms or fever? No Have you had Guillain-[place] Syndrome (an illness that causes paralysis) within the last 6 weeks? No Have you had the flu shot in the past? YES Have you ever had a reaction to the flu shot? No Rosemary Greenwood LPN, 01/16/2023 6:59 AM Immunization Administration Documentation Time Out Procedure Performed: Yes Patient Identified (Ask Name/Date of ): Yes Does the patient have a fever greater than 101 degrees today? No Patient allergic to latex? No VFC Stock: No Immunization(s) verified: Yes, Immunization Name: Flu, VIS Sheet(s) given: Yes Verified Side and Site: Yes Verified Shot(s) with Parent(s)/Patient: Yes documented in this encounter Nursing Notes * Rosemary Greenwood LPN - 01/16/2023 6:58 AM EDT Chief Complaint Patient presents with Physical-Exam documented in this encounter Plan of Treatment Upcoming Encounters Date Type Specialty Care Team Description 01/16/2023 Laboratory Laboratory [facility] [address] [place] [address] Arrived 01/18/2024 Office Visit Family Medicine Francisco Clayton, Kamran Burgos DO [address] [place] [address] Scheduled Orders Name Type Priority Associated Diagnoses Orde r Schedule COMPREHENSIVE METABOLIC PANEL Lab Routine Hyperlipidemia with target LDL less than 100 6 Occurrences starting 01/16/2023 until 02/15/2024 LIPID PANEL WITH DIRECT LDL IF TG IS HIGH Lab Routine Hyperlipidemia with target LDL less than 100 6 Occurrences starting 01/16/2023 until 01/17/2024 PSA Lab Routine Screening for prostate cancer Expected: 01/16/2023 (Approximate), Expires: 01/16/2024 HEMOGLOBIN A1C Lab Routine Prediabetes 6 Occurrences starting 01/16/2023 until 02/17/2024 Health Maintenance Due Date Last Done Comments Hepatitis B (1 of 3 - 3-dose series) 1965 Cologuard 2009 Colonoscopy 2009 Colorectal Cancer Screening 2009 Fecal Occult Blood Test 2009 Sigmoidoscopy 2009 Zoster Vaccines (1 of 2) 2014 Depression Screening 01/18/2022 01/18/2021 DTaP,Tdap,and Td Vaccines (3 - Td or Tdap) 11/26/2022 11/26/2012, 11/26/2012, 08/16/2002 COVID-19 Vaccine (2 - 2022- season) 2022 01/23/2022 HbA1c 01/22/2023 01/22/2022, 0 11/2020, 10/26/2020, Additional history exists Lipid Panel 01/22/2027 01/22/2022, 0 11/2020, 01/18/2020, Additional history exists Influenza Vaccine (FLU shot) Completed 09/2022, 01/22/2022, 01/18/2021, Additional history exists GARDASIL-HPV IMMUNIZATION SERIES Aged Out No longer eligible based on patient's age to complete this topic MENINGOCOCCAL (MENACTRA/MENVEO) Aged Out No longer eligible based on patient's age to complete this topic Pneumococcal Vaccine: Pediatrics (0 to 5 Years) and At-Risk Patients (6 to 64 Years) Aged Out No longer eligible based on patient's age to complete this topic documented as of this encounter Medical Devices Not on filedocumented as of this encounter Visit Diagnoses Diagnosis Routine medical exam- Primary Routine general medical examination at a health care facility Hyperlipidemia with target LDL less than 100 Other and unspecified hyperlipidemia Prediabetes Other abnormal glucose SUZAN (obstructive sleep apnea) Obstructive sleep apnea (adult) (pediatric) Paroxysmal atrial fibrillation (HCC) Atrial fibrillation Morbid obesity with BMI of 40.0-44.9, adult (HCC) Morbid obesity Screening for prostate cancer Special screening for malignant neoplasm of prostate Need for prophylactic vaccination and inoculation against influenza Morbid obesity due to excess calories (HCC) documented in this encounter Advance Directives Latest Code Status on File Code Status Date Activated Date Inactivated Comments Limited Code 11/04/2019 1:59 AM 11/04/2019 8:20 PM This order reflects the patients wishes and were consensually agreed upon. Question Answer Comments Intubation? No Cardiac Compressions? Yes Cardiac Drugs? Yes Code Status History Code Status Date Activated Date Inactivated Comments Full Code 11/04/2019 1:05 AM 11/04/2019 1:59 AM This order reflects the patients wishes and were consensually agreed upon. Care Teams Bobbin Collector Relationship Specialty Start Date End Date Francisco Clayton, Kamran Burgos, DO [address] [place] [address] PCP - General Family Medicine 05/09/20 documented as of this encounter
--- OUTSIDE RECORDS SUMMARY | 2023-03-25 17:53 | External Medical Summary | Summary of Care ---
Author Name Unknown Organization [facility] Address [address] [facility] [place] [address] Phone [phone] Care Team Providers Care [facility] Name Role Phone Francisco Clayton DO, David Vincent Primary Care Provid er Reason for Visit * Reason Comments eRx-Medication Refill Encounter Details Date Type Department Care Team Description 10/09/2022 Refill [facility] [address] [facility] [place] [address] Vipin Singh Jr., DO [address] [place] [address] Allergies Active Allergy Reactions Severity Noted Date Comments Iodinated Contrast Media 03/10/2017 rash documented as of this encounter (statuses as of 10/09/2022) Medications Medication Sig Dispensed Refills Start Date End Date Status MULTIPLE VITAMIN PO TABS 1 TABLET DAILY 0 04/21/2011 Active Loratadine 10 MG Cap Take 10 mg by mouth. 1 daily as needed 0 Active Aspirin 81 MG Oral Tablet Chewable Take 1 Tab by mouth daily. 1 Tab 0 07/17/2020 Active Atorvastatin Calcium 40 MG Oral Tablet (Lipitor) TAKE 1/2 TABLET BY MOUTH EVERY DAY 45 Tablet 3 03/07/2022 Active Metoprolol Succinate ER 50 MG Oral Tablet Extended Release 24 Hour (toPROL XL)Indications:P aroxysmal SVT (supraventricula r tachycardia) (HCC) Take 1 Tablet by mouth in the morning. 90 Tablet 3 06/10/2022 Active DULoxetine HCl 60 MG Oral Capsule Delayed Release Particles (Cymbalta) TAKE 1 CAPSULE BY MOUTH EVERYDAY AT BEDTIME 90 Capsule 1 10/09/2022 Active DULoxetine HCl 60 MG Oral Capsule Delayed Release Particles (Cymbalta) TAKE 1 CAPSULE BY MOUTH EVERYDAY AT BEDTIME 90 Capsule 3 10/19/2021 10/09/2022 Discontinued documented as of this encounter (statuses as of 10/09/2022) Active Problems Problem Noted Date SUZAN (obstructive sleep apnea) 08/23/2020 Prediabetes 01/22/2020 Meralgia paresthetica, bilateral lower l imbs 01/18/2020 Morbid obesity with BMI of 40.0-44.9, ad ult 11/04/2019 Paroxysmal atrial fibrillation 4 Hyperlipidemia with target LDL less than 100 08/08/2013 Overview: ICD-10 update of inactive term Paroxysmal SVT (supraventricular tachyca rdia) 12/16/2012 documented as of this encounter (statuses as of 10/09/2022) Resolved Problems Problem Noted Date Resolved Date Sustained SVT 11/04/2019 11/04/2019 Elevated troponin 11/04/2019 01/18/2020 Mixed hyperlipidemia 12/16/2012 08/08/2013 Obesity, Class I, BMI 30.0-34.9 (see actual BMI) 12/16/2012 04/28/2013 Special screening for malignant neoplasm of pros saleem 09/25/2009 01/14/2018 Pure hyperglyceridemia 03/27/2008 8 Elevated blood pressure read ing without diagnosis of hypertension 03/27/2008 01/14/2018 documented as of this encounter (statuses as of 10/09/2022) Immunizations Name Administration Dates Next Due Covid-19, Mrna, Lnp-s, Pf, B ivalent, 30 Mcg, IM, 12 yrs and above (Pfizer) 01/23/2022 Seasonal Influenza, Quadriva lent, No Preserve, 6 Mons & Above, IM 01/22/2022,01/18/2021,01/18/2020 TDAP (age 11 and older)(Adacel) 11/26/2012 Tetanus Toxid Adsorbed 08/16/2002 documented as of this encounter Social History Tobacco Use Types Packs/Day Years Used Date Smoking Tobacco: Never Cigarettes Smokeless Tobacco: Never Alcohol Use Standard Drinks/Week Comments Yes 0 [...] on file documented as of this encounter Functional Status Functional Status Response [...] No 11/04/2019 documented as of this encounter Miscellaneous Notes * Telephone Encounter - Estephania Becerra RPh - 10/09/2022 2:20 PM EDTSigned Prescriptions: Disp Refills DULoxetine HCl 60 MG Oral Capsule Delayed *90 Cap*1 Sig: TAKE 1 CAPSULE BY MOUTH EVERYDAY AT BEDTIMEAuthorizing Provider: VIPIN SINGH JR User: ESTEPHANIA BECERRA documented in this encounter Plan of Treatment Upcoming Encounters Date Type Specialty Care Team Description 01/16/2023 Office Visit Family Medicine Francisco Clayton, Vipin Burgos, DO [address] [place] [address] Health Maintenance Due Date Last Done Comments Hepatitis B (1 of 3 - 3-dose series) 1965 Cologuard 2009 Colonoscopy 2009 Colorectal Cancer Screening 2009 Fecal Occult Blood Test 2009 Sigmoidoscopy 2009 Zoster Vaccines (1 of 2) 2014 Depression Screening, Annual for Pts 12 and Over 01/18/2022 01/18/2021 DTaP,Tdap,and Td Vaccines (2 - Td or Tdap) 11/26/2022 11/26/2012 HbA1c 01/22/2023 01/22/2022, 0 11/2020, 10/26/2020, Additional history exists Lipid Panel 01/22/2027 01/22/2022, 100 11/2020, 01/18/2020, Additional history exists Influenza Vaccine (FLU shot) Completed 03/2022, 01/18/2021, 01/18/2020 COVID-19 Vaccine Completed 01/23/2022 GARDASIL-HPV IMMUNIZATION SERIES Aged Out No longer [...] Not on filedocumented as of this encounter Advance Directives Latest Code Status [...] and were consensually agreed upon. Care Teams [facility] Relationship Specialty Start Date End Date Francisco Clayton, Vipin Burgos, DO [address] [place] [id number] PCP - General Family Medicine 05/09/20 documented as of this encounter
--- OUTSIDE RECORDS SUMMARY | 2023-03-25 17:53 | External Medical Summary ---
Author Name Unknown Address Unknown Organization K01:[facility] [address] [place] [address] Laboratory Report Ordering Provider Test Date Status CELY LEW JR 01/16/2023 07:33:04 Final Observation Date Value Abnormality Reference (Units ) Status PSA 01/16/2023 07:33:04 1.39 <3.10 (ng/ mL) Final Performing Location [facility] [address] [place] [id number]
--- OUTSIDE RECORDS SUMMARY | 2023-03-25 17:53 | External Medical Summary ---
Author Name Unknown Address Unknown Organization K01:LABORATORY [facility] - [address] [place] [address] Laboratory Report Ordering Provider Test Date Status CELY LEW JR 01/16/2023 07:33:04 Final Observation Date Value Abnormality Reference (Units ) Status Triglyceride 01/16/2023 07:33:04 143 <=174 ( mg/dL) Final Triglyceride Reference Range s (mg/dL):
<150 Acceptable
150-174 Borderline high
175-499 High
>=500 Very high Cholesterol 01/16/2023 07:33:04 144 <200 (mg /dL) Final Total Cholesterol Reference Ranges (mg/dL):
<200 Desirable
200-239 Borderline high
>=240 High HDL 01/16/2023 07:33:04 42 >39 (mg/dL ) Final HDL Cholesterol Reference Ra nges (mg/dL):
>=60 High (Desirable)
<50 Low (Undesirable) For Females
<40 Low (Undesirable) For Males NON-HDL CHOLESTEROL 01/16/2023 07:33:04 102 <=159 (mg/dL) Final Non-HDL Cholesterol Referenc e Range (mg/dL):
<100 Target level for high risk ASCVD patient
<130 Optimal for general population
130-159 Near optimal for general population
160-189 Borderline High
190-219 High
>=220 Very High LDL, (calculated) 01/16/2023 07:33:04 73 <= 129 (mg/dL) Final LDL Cholesterol Reference Ra nges (mg/dL):
<70 Target level for high risk ASCVD patient
<100 Optimal for general population
100-129 Near optimal for general population
130-159 Borderline high
160-189 High
>=190 Very high Performing Location LABORATORY [facility] [place] - [address] [facility] [address]
--- OUTSIDE RECORDS SUMMARY | 2023-03-25 17:53 | External Medical Summary | Summary of Care ---
Author Name Unknown Organization [facility] Address [address] [facility] [place] [address] Phone [phone] Care Team Providers Care Automation Architect Name Role Phone Francisco Clayton DO, David Vincent Primary Care Provid er Reason for Visit * Reason Comments Outpatient Testing Encounter Details Date Type Department Care Team Description 01/16/2023 Laboratory Laboratory, Central [address] [place] [address] [facility] [address] [place] [id number] Hyperlipidemia with target LDL less than 100; Screening for prostate cancer; Prediabetes Allergies Active Allergy Reactions Severity Noted Date [...] Oral Tablet Extended Release 24 Hour (toPROL XL)Indications:Parox ysmal SVT (supraventricular tachycardia) Take 1 Tablet by mouth in the morning. 90 Tablet 3 06/10/2022 Active DULoxetine HCl 60 MG Oral Capsule Delayed Release Particles (Cymbalta) TAKE 1 CAPSULE BY MOUTH EVERYDAY AT BEDTIME 90 Capsule 1 10/09/2022 Active documented as of this encounter (statuses as [...] IM, 12 yrs and above (Pfizer) 01/23/2022 DTaP Dipth/Tet/Acell Pertussis (Infanrix), Peds 11/26/2012 SEASONAL INFLUENZA, PF, 6 M & Above, IM , (FLULAVAL or FLUZONE) 01/16/2023,01/22/2022,01/18/2021,2019 TD, Preservative Free 08/16/2002 TDAP (age 11 and older)(Adacel) 11/26/2012 Tetanus Toxid Adsorbed 08/16/2002 documented as of this encounter Social History Tobacco Use Types Packs/Day Years Used Date Smoking Tobacco: Never Smokeless Tobacco: Never Alcohol Use Standard Drinks/Week [...] No 11/04/2019 documented as of this encounter Plan of Treatment Upcoming Encounters Date Type Specialty Care Team Description 01/18/2024 Office Visit Family Medicine Francisco Clayton, Kamran Burgos, DO [address] [place] [address] Pending Results Name Type Priority Associated Diagnoses Date /Time COMPREHENSIVE METABOLIC PANEL Lab Routine Hyperlipidemia with target LDL less than 100 01/16/2023 7:33 AM EDT LIPID PANEL WITH DIRECT LDL IF TG IS HIGH Lab Routine Hyperlipidemia with target LDL less than 100 01/16/2023 7:33 AM EDT PSA Lab Routine Screening for prostate cancer 01/16/2023 7:33 AM EDT HEMOGLOBIN A1C Lab Routine Prediabetes 01/16/2023 7:33 AM EDT Health Maintenance Due Date Last Done Comments Hepatitis B (1 of 3 - 3-dose series) 1964 Cologuard 2009 Colonoscopy 2009 Colorectal Cancer Screening 2009 Fecal Occult Blood Test 2009 Sigmoidoscopy 2009 Zoster Vaccines (1 of 2) 2014 Depression Screening 01/18/2022 01/18/2021 DTaP,Tdap,and Td Vaccines (3 - Td or Tdap) 11/26/2022 11/26/2012, 11/26/2012, 08/16/2002 COVID-19 Vaccine (2 - season) 2022 01/23/2022 HbA1c 01/22/2023 01/22/2022, 11/2020, 10/26/2020, Additional history exists Lipid Panel [...] as of this encounter Visit Diagnoses Diagnosis Hyperlipidemia with target LDL less than 100 Other and unspecified hyperlipidemia Screening for prostate cancer Special screening for malignant neoplasm of prostate Prediabetes Other abnormal glucose documented in this encounter Advance Directives Latest [...] and were consensually agreed upon. Care Teams Automation Architect Relationship Specialty Start Date End Date Kamran Singh Jr., DO [address] [place] [address] PCP - General Family Medicine 05/09/20 documented as of this encounter
--- OUTSIDE RECORDS SUMMARY | 2023-03-25 17:53 | External Medical Summary ---
Author Name Unknown Address Unknown Organization K01:LABORATORY [facility] [place] - [address] [place] [address] Laboratory Report Ordering Provider Test Date Status CELY LEW JR 01/16/2023 07:33:04 Final Observation Date Value Abnormality Reference (Units ) Status BUN 01/16/2023 07:33:04 12 6-20 (mg/dL) Final Creatinine 01/16/2023 07:33:04 1.1 0.6-1.2 (mg/dL) Final Glomerular filtration rate/1.73 sq M.predicted [Volume Rate/Area] in Serum, Plasma or Blood by Creatinine-based formula (CKD-EPI) 01/16/2023 07:33:04 80 >=60 (mL/min) Final eGFR is calculated based on the CKD-EPI 2020 equation SODIUM 01/16/2023 07:33:04 141 135-146 (m mol/L) Final Potassium 01/16/2023 07:33:04 4.4 3.5-5.1 (m mol/L) Final Cl 01/16/2023 07:33:04 107 98-107 (mm ol/L) Final CO2 01/16/2023 07:33:04 24 22-32 (mmo l/L) Final Anion gap 01/16/2023 07:33:04 10 7-15 (mmol /L) Final Glucose 01/16/2023 07:33:04 111 70-120 (mg /dL) Final Albumin 01/16/2023 07:33:04 4.4 3.8-5.0 (g /dL) Final AST (Aspartate aminotransferase) 01/16/2023 07:33:04 24 10-50 (U/L) Final Alk Phos 01/16/2023 07:33:04 64 35-130 (U/ L) Final Bilirubin, Total 01/16/2023 07:33:04 0.6 <=1 .2 (mg/dL) Final Calcium 01/16/2023 07:33:04 9.4 8.4-10.2 ( mg/dL) Final Protein 01/16/2023 07:33:04 6.5 6.0-8.3 (g /dL) Final ALT (Alanine aminotransferase) 01/16/2023 07:33:04 35 10-50 (U/L) Final Performing Location LABORATORY [facility] [place] - [facility] [address] [facility] [address]
[2023-03-25] MEDS ORDERED: SODIUM CHLORIDE 0.9% 1,000 ML IV ONE (20:47)
[2023-03-25] MEDS ORDERED: HEPARIN SOD (PORCINE) 1000 UNIT/ML IV ONE (21:00)
[2023-03-26 04:02] LABS: Mean Corpuscular Hemoglobin 31.5 pg (25.0-34.0); Mean Corpuscular Hgb Conc 34.1 g/dL (32.0-36.0); Mean Corpuscular Volume 92.3 fL (80.0-100.0); Platelet Count 210 K/uL (130-400); RDW Standard Deviation 43.8 fL (36.4-46.3); Red Blood Count 4.44 M/uL (4.70-6.10); White Blood Count 7.82 K/ul (4.8-10.8)
[2023-03-26 04:20] LABS: BUN Creatinine Ratio 18.4 (10-20); Calcium 8.9 mg/dl (8.6-10.3); Chol HDL Ratio 4.1 (0-5); Creatinine Clr Calc Pharmacy 94.1 ml/min; Est GFR (African American) 92.4 ml/min; Est GFR (Non-African American) 79.7 ml/min; Potassium 3.9 mmol/L (3.5-5.1)
[2023-03-26 04:37] LABS: ANTI-Xa, UFH(UnfractionatedHep 0.26 IU/ml (0.3-0.7)
[2023-03-26 04:39] LABS: Troponin I High Sensitivity 614.7 pg/ml (0-20)
--- NOTE | 2023-03-26 08:37 | Electrocardiogram Report ---
Test Reason : Blood Pressure : / mmHG Vent. Rate : 067 BPM Atrial Rate : 067 BPM P-R Int : 162 ms QRS Dur : 084 ms QT Int : 432 ms P-R-T Axes : 046 013 015 degrees QTc Int : 456 ms Sinus rhythm with Premature supraventricular complexes Otherwise normal ECG When compared with ECG of 25-MAR-2023 10:50, Premature ventricular complexes are no longer Present Premature supraventricular complexes are now Present Confirmed by Juan Miguel Reina ([id number]) on 03/26/2023 8:37:18 AM Referred By: REFERRED SELF Confirmed By:Juan Miguel Reina
--- NOTE | 2023-03-26 08:47 | Electrocardiogram Report ---
Test Reason : Blood Pressure : / mmHG Vent. Rate : 090 BPM Atrial Rate : 090 BPM P-R Int : 154 ms QRS Dur : 086 ms QT Int : 358 ms P-R-T Axes : 036 010 001 degrees QTc Int : 437 ms Sinus rhythm with occasional Premature ventricular complexes Otherwise normal ECG No previous ECGs available Confirmed by Juan Miguel Reina ([id number]) on 03/26/2023 8:46:45 AM Referred By: Confirmed By:Juan Miguel Reina
[2023-03-26] MEDS ORDERED: METOPROLOL SUCC 50MG EXT REL TAB PO SCH (09:00)
[2023-03-26] MEDS ORDERED: ASPIRIN 81 MG ECTAB PO SCH (09:00)
[2023-03-26] MEDS ORDERED: ATORVASTATIN 20 MG TAB PO SCH (09:00)
--- NOTE | 2023-03-26 09:43 | XCELERA ---
[id number] \\[id number]
[2023-03-26] MEDS ORDERED: HEPARIN (PORCINE) 1000 UNIT/ML 10 ML (CATH LAB USE ONLY) ONE (10:30)
[2023-03-26] MEDS ORDERED: niCARdipine HCL INJ 2.5 MG/ML 10 ML AMP ONE (10:30)
[2023-03-26] MEDS ORDERED: MIDAZOLAM HCL 1 MG/ML 2ML VIAL ONE (10:31)
[2023-03-26] MEDS ORDERED: fentaNYL citrate PF 100 MCG/2 ML VIAL ONE (10:31)
[2023-03-26] MEDS ORDERED: NITROGLYCERIN/D5W 100MCG/ML 20ML SYR ONE (10:32)
--- NOTE | 2023-03-26 10:36 | Pre Anesthesia Assessment ---
Date of Service March 26, 2023 Pre Sedation Assessment Vital Signs Temp Pulse Pulse Resp BP BP Pulse Ox 03/26/23 10:21 16 119/75 97 03/26/23 08:00 63 03/26/23 07:24 36.6 C 71 18 126/86 97 03/26/23 03:28 36.5 C 66 18 116/79 96 03/25/23 22:41 36.6 C 69 18 116/73 95 03/25/23 19:17 36.6 C 76 18 142/85 H 99 03/25/23 16:40 36.7 C 83 18 132/74 100 03/25/23 15:30 105/74 03/25/23 15:30 77 23 98 03/25/23 15:00 71 24 99 03/25/23 15:00 127/92 03/25/23 14:43 03/25/23 14:31 125/95 03/25/23 14:30 68 18 99 03/25/23 14:13 72 03/25/23 14:00 113/80 03/25/23 14:00 76 17 94 03/25/23 13:30 74 16 03/25/23 13:30 111/74 03/25/23 13:00 80 24 98 03/25/23 13:00 107/86 03/25/23 12:37 77 03/25/23 12:30 133/94 03/25/23 12:30 78 21 98 03/25/23 12:00 82 19 97 03/25/23 12:00 118/87 03/25/23 11:30 81 13 97 03/25/23 11:30 115/91 03/25/23 11:04 88 24 97 03/25/23 11:03 89 22 109/79 97 03/25/23 11:03 03/25/23 11:02 03/25/23 11:02 03/25/23 10:38 36.9 C 91 H 20 113/69 97 O2 Del Method 03/26/23 10:21 Room Air 03/26/23 08:00 03/26/23 07:24 Room Air 03/26/23 03:28 Room Air 03/25/23 22:41 Room Air 03/25/23 19:17 Room Air 03/25/23 16:40 Room Air 03/25/23 15:30 03/25/23 15:30 Room Air 03/25/23 15:00 Room Air 03/25/23 15:00 03/25/23 14:43 Room Air 03/25/23 14:31 03/25/23 14:30 Room Air 03/25/23 14:13 03/25/23 14:00 03/25/23 14:00 Room Air 03/25/23 13:30 03/25/23 13:30 03/25/23 13:00 Room Air 03/25/23 13:00 03/25/23 12:37 03/25/23 12:30 03/25/23 12:30 Room Air 03/25/23 12:00 Room Air 03/25/23 12:00 03/25/23 11:30 Room Air 03/25/23 11:30 03/25/23 11:04 Room Air 03/25/23 11:03 Room Air 03/25/23 11:03 Room Air 03/25/23 11:02 Room Air 03/25/23 11:02 Room Air 03/25/23 10:38 Room Air Cardiovascular RRR, no murmur, no edema Respiratory normal respiratory effort, lungs clear to auscultation Pre-Sedation Airway Assessment Smoking Status: Never smoker Hx Sleep Apnea: No Short, Thick Neck: No Thyromental Distance: > or= 3.5 Finger Breadths Oral Cavity: + WNL Mallampati Class: IV MALLAMPATI 3 ASA: ASA3 ASA 3 NPO Status Date of Last Intake of Fluids: 03/26/23 Time of Last Intake of Fluids: 08:00 Last Oral Intake of Fluids Comment: sip with meds Date of Last Intake of Solid Food: 03/25/23 Notes The planned sedation has been discussed with the patient. Informed Consent was obtained. I have identified the patient, determined the appropriateness of sedation and have assessed the patient immediately prior to the procedure. All medicine(s) and interventions are by my order.
[2023-03-26] MEDS ORDERED: OPTIRAY 350 ONE (10:53)
--- NOTE | 2023-03-26 11:17 | Post Anesthesia Assessment ---
Date of Service March 26, 2023 Post Sedation Assessment Vital Signs Temp Pulse Pulse Resp BP BP Pulse Ox 03/26/23 10:21 16 119/75 97 03/26/23 08:00 63 03/26/23 07:24 36.6 C 71 18 126/86 97 03/26/23 03:28 36.5 C 66 18 116/79 96 03/25/23 22:41 36.6 C 69 18 116/73 95 03/25/23 19:17 36.6 C 76 18 142/85 H 99 03/25/23 16:40 36.7 C 83 18 132/74 100 03/25/23 15:30 105/74 03/25/23 15:30 77 23 98 03/25/23 15:00 71 24 99 03/25/23 15:00 127/92 03/25/23 14:43 03/25/23 14:31 125/95 03/25/23 14:30 68 18 99 03/25/23 14:13 72 03/25/23 14:00 113/80 03/25/23 14:00 76 17 94 03/25/23 13:30 74 16 03/25/23 13:30 111/74 03/25/23 13:00 80 24 98 03/25/23 13:00 107/86 03/25/23 12:37 77 03/25/23 12:30 133/94 03/25/23 12:30 78 21 98 03/25/23 12:00 82 19 97 03/25/23 12:00 118/87 03/25/23 11:30 81 13 97 03/25/23 11:30 115/91 O2 Del Method 03/26/23 10:21 Room Air 03/26/23 08:00 03/26/23 07:24 Room Air 03/26/23 03:28 Room Air 03/25/23 22:41 Room Air 03/25/23 19:17 Room Air 03/25/23 16:40 Room Air 03/25/23 15:30 03/25/23 15:30 Room Air 03/25/23 15:00 Room Air 03/25/23 15:00 03/25/23 14:43 Room Air 03/25/23 14:31 03/25/23 14:30 Room Air 03/25/23 14:13 03/25/23 14:00 12/13/23 14:00 Room Air 03/25/23 13:30 03/25/23 13:30 03/25/23 13:00 Room Air 03/25/23 13:00 03/25/23 12:37 03/25/23 12:30 03/25/23 12:30 Room Air 03/25/23 12:00 Room Air 03/25/23 12:00 03/25/23 11:30 Room Air 03/25/23 11:30 Recovery Score Activity: Moves 4 extremities Respiration: Deep Breath/Cough Circulation: +/-20% PreAnes Value Consciousness: Fully Awake Oxygen Saturation: > 92% On Room Air Discharge Sedation Level of Care: Fast Track Phase II Post Sedation Plan On clinical assessment, the patient appears to have tolerated the sedation without complications. Patient is recovering as anticipated. Patient will continue to be monitored by nursing and may be discharged when sedation discharge criteria are met per below protocol. Upon Completions of procedure up to 15 minutes continue every 5 minute vital signs and the P.A.R. score; then discharge to a Phase I or Fast Track to Phase II per the following guidelines: * Discharge Patient to appropriate Phase II area if PAR is 8 or greater or return to pre- procedure baseline. The post - procedure orders will be as directed. * If PAR score is less than 8 or not return to pre-procedure baseline then patient will follow Phase I monitoring till PAR is reached for Phase II. The Phase I may be done in procedure room or may call to secure a Phase I area. * If naloxone or flumazenil are used for reversal, hold in Phase I for continued monitoring from when last reversal dose was given for a minimum of 60 minutes or longer pending the nurse and/or physician discretion of patient condition before discharge to Phase II. Please call the Sedation Physician to re-evaluate and complete post-note for discharge to Phase II area. Do NOT discharge from procedure sedation or Phase 1 until post- sedation evaluation note is complete by procedure /sedation MD Sedation Discharge Instructions to be given to the patient at discharge to home. [facility] Procedure Codes (Charges) Indication for Procedure Indication for procedure: NSTEMI PSVT Sedation/Anesthesia Procedure 1: Sedation/Anesthesia: 26154 Mod Sedation by the same physician;Init15 Min Child Age 5 & Up (START 1055, END 1107)
--- NOTE | 2023-03-26 14:51 | Discharge Summary ---
Discharge Summary Date of Service March 26, 2023 Notes For Next Care Provider Please ensure cardiology follow up- cardiac cath without cause of symptoms Medication Changes From Visit Metoprolol succinate dose increased to 75mg daily Admission HPI Per Admitting Provider 57-year-old male with PMH HLD, prediabetes, untreated SUZAN, paroxysmal atrial fibrillation not anticoagulated, paroxysmal SVT, and other problems listed below who presents to the ED for evaluation of chest discomfort. History is obtained from the patient and review of outpatient PCP and cardiology records. Patient reports that while he was at work this morning, he developed a midsternal chest discomfort with associated diaphoresis. Patient reports symptoms were similar to when he has been in atrial fibrillation in the past however he typically does not have diaphoresis. Patient reports associated palpitations. Symptoms lasted for about 2 hours and then presented to the ED for further evaluation. Patient also reports associated nausea. Denies lightheadedness and dizziness. No other recent illnesses, fevers, chills. He denies abdominal pain, vomiting, diarrhea. No urinary symptoms. Symptoms self resolved upon arrival to the ED. In the ED, patient is hemodynamically stable. EKG shows NSR with PVCs. Initial HS troponin 26.7 --> 179.9. Patient was given full dose aspirin and started on heparin drip. Admission Exam Per Admitting Provider Constitutional: WD/WN, vitals as above Eyes: PERRL, conjunctivae normal, anicteric sclerae ENMT: external ear and nose normal, oropharynx normal Respiratory: normal respiratory effort, lungs clear to auscultation Cardiovascular: Rate/Rhythm: regular rate and regular rhythm Vessels: normal peripheral pulses Extremities: no edema Gastrointestinal (Abdomen): normal bowel sounds, soft, nontender, no hepatosplenomegaly Musculoskeletal: no cyanosis or clubbing, extremities motor strength 5/5 Skin: no rashes, warm and dry Neurologic: PERRL, EOMI, accommodation nl, no face palsy, no dysarthria Psychiatric: A+Ox3, euthymic affect Principal Dx & Hospital Course #1 = Principal Diagnosis (1) Chest pain: (2) Elevated troponin: (3) Acute non-ST elevation myocardial infarction (NSTEMI): (4) Paroxysmal atrial fibrillation: (5) Paroxysmal SVT (supraventricular tachycardia): (6) Dyslipidemia: Plan 57yo male with PMHx significant for HLD, prediabetes, untreated SUZAN, paroxysmal atrial fibrillation not anticoagulated, paroxysmal SVT admitted with atypical chest pain. Atypical chest Pain Elevated troponin Chest discomfort CAD Patient presenting for evaluation of chest discomfort, palpitations, diaphoresis. Symptoms self resolved after 2 hours. History of paroxysmal atrial fibrillation. In the ED, EKG showed NSR with PVCs. Patient hemodynamically stable. HS troponin 26.7 --> 179.9 -->1124 --->614 Given troponin elevation, patient started on IV heparin in the ED Possible NSTEMI Echo within normal limts, EF 55-60% Continue home beta-rakesh Cardiology consult ([facility] -cardiac cath on 03/26: showed "patient has SLUGGISH FLOW throughout both the left and right coronary systems. Diffuse mild to borderline moderate coronary disease as described. Diffuse sluggish coronary flow. Recommend guideline directed medical therapy for secondary prevention of coronary artery disease to include; low-dose aspirin, high intensity statin therapy, beta-rakesh, plus or minus NAVDEEP inhibitor/ARB as tolerated. Suspect some degree of microvascular dysfunction so a long-acting nitrate may be helpful." Cardiology recommended increasing home metoprolol dose to 75mg on discharge with close cardiology follow up. Paroxysmal atrial fibrillation Paroxysmal SVT (supraventricular tachycardia) History of paroxysmal atrial fibrillation and paroxysmal SVT controlled with metoprolol Currently not anticoagulated due to short, infrequent episodes of atrial fibrillation Cardiology recommended increasing home metoprolol dose to 75mg on discharge with close cardiology follow up. Dyslipidemia Continue statin Discharge Exam General: Alert, oriented. No acute distress Skin: No noted rashes or bruises Psych: Appropriate mood and affect Neuro: No gross deficits HEENT: NC/AT Chest: Nontender to palpation. CV: RRR, Normal s1, s2. No murmurs appreciated Resp: Breath sounds clear bilaterally, no increased effort of breathing. Abdomen: Soft, nontender, nondistended. Updated Medication List Medication Instructions Recorded Confirmed Type duloxetine 60 mg capsule,delayed 60 mg PO DAILY 90 days #90 caps 03/21/19 03/25/23 Rx release (Cymbalta) multivitamin (Daily Multi-Vitamin 1 tab PO DAILY 03/21/19 03/25/23 History tablet) aspirin 81 mg tablet,delayed 81 mg PO DAILY 09/02/22 03/25/23 History release (Adult Aspirin Regimen) atorvastatin 40 mg tablet 20 mg PO DAILY 09/02/22 03/25/23 History metoprolol succinate 50 mg 50 mg PO DAILY 09/02/22 03/25/23 History tablet,extended release 24 hr metoprolol succinate 25 mg 25 mg PO DAILY #30 tabs 03/26/23 Rx tablet,extended release 24 hr Hospital Stay Data Consultations 03/25/23 13:55 ED Decision to Admit Stat 03/25/23 14:55 Consult Cardiology Routine Procedures Performed Operation Date: 03/26/23 10:00 Actual Procedures s Cineradiography w/Routine Exam - Jeremy Varela MD, PhD p Cath, Coronaries ONLY (no LV) - Jeremy Varela MD, PhD Diagnostic Imagining Performed 03/26/23 09:52 CL Cath Imgs for PACS use only Routine Chest X-Ray 03/25/23 11:01 XR chest 1V portable HISTORY: 57 years-old Male afib? Acute chest pain with tachycardia COMPARISON: None TECHNIQUE: AP view of the chest FINDINGS: Cardiac silhouette is enlarged. No pneumothorax, pleural effusion or airspace consolidation. The bones of the chest appear grossly intact. IMPRESSION: Cardiomegaly without acute process. ACT 112: Negative or not required by law. The above report was generated using voice recognition software. It may contain grammatical, syntax or spelling errors. Electronically signed by: Farooq Gil M.D. 03/25/2023 11:29 AM Pending Results Patient Have Any Pending Studies at Discharge: No Discharge Instructions Given to Patient (Per Discharging Provider) Mr. Dang, Enrique presented with chest pains and palpitations and your symptoms have resolved. You were seen by Cardiology and had a cardiac catheterization done that did not show a cause of your symptoms. Cardiology is recommending discharge home with an increase of your home metoprolol succinate dose to 75mg and that you keep follow up with them as scheduled. Please take the metoprolol succinate 25mg sent to your pharmacy with the metoprolol succinate 50mg pill you have at home. Please also keep close follow up with your primary care provider and cardiology after discharge. Please do not hesitate to come back to the emergency room should your symptoms return or worsen. It was a pleasure taking care of you while you were here! Total Time Total Time Spent Total Time Spent (In Minutes): > 30 minutes
--- NOTE | 2023-03-26 15:07 | Cardiac Catheterization ---
ACC Data: Produce Manager Cardiac Status Clinical evaluation leading to the procedure CAD Presenation: Non STEMI Anginal Classification: CCS III Heart Failure: No Cardiogenic Shock within 24 Hours: No Cardiac Arrest within 24 Hours: No Imaging Studies Past 6 Months: No Stress Studies Past 6 Months: No Coronary Anatomy Dominant: Left Left Main (% Stenosis): Normal LAD (% Stenosis): Proximal (30%), Mid (30 to 40%) and Distal (Luminal irregularities) D1 (% Stenosis): Proximal (Ostial to proximal 40%) Circumflex (% Stenosis): Normal OM1 (% Stenosis): Normal OM2 (% Stenosis): Normal L PL1 (% Stenosis): Normal L PDA (% Stenosis): Normal RCA (% Stenosis): Mid (50%) Ramus (% Stenosis): Normal Diagnostic Physicians Name: Jeremy Varela MD, PhD Closure Device Percutaneous Entry Location: Radial Closure Device: Radial Band Recommendations: Medical Therapy and/or Counseling Cardiac Cath Procedure Full Procedure Date March 26, 2023 Pre-Procedure Diagnosis Pre-Procedure Diagnosis: Non STEMI AUC Score AUC Score: 07 Post-Procedure Diagnosis Post-Procedure Diagnosis: Mild CAD Procedure(s) Performed Procedure(s) Performed: Coronary Angiography Distributed Generation Project Manager Jeremy Varela MD, PhD Estimated Blood Loss Estimated Blood Loss: 5 mL Medication(s) Medication(s): Fentanyl, Heparin, Lidocaine 1%, Nicardipine, Nitroglycerin and Versed Summary of Findings Brief description: Patient was brought to the cardiac catheterization suite where he was shaved and prepped in a sterile fashion. Sedated using IV Versed and fentanyl. Soft tissues of the right wrist were anesthetized using 2 mL of 1% Xylocaine. The right radial artery was accessed with a modified Seldinger technique and a 6 [place] radial artery glide sheath was placed. Patient was provided anticoagulation with IV heparin and antispasmodics including nitroglycerin and nicardipine. All catheters were advanced and exchanged over a 0.035 J-tip wire. Left coronary angiography in orthogonal views with a 5 [place] 4 diagnostic catheter. Right coronary angiography in orthogonal views with a 5 [place] 4 diagnostic catheter. Diagnostic catheters were removed. Radial artery sheath was removed. Hemostasis is obtained using the TR band. Patient remained hemodynamically stable and asymptomatic. He was returned to the recovery area. This ended the case. Coronary angiography findings: HWZ-agwvv-mecvzdz vessel trifurcating into LAD, circumflex, and ramus. There is mild luminal irregularities. JBH-jfzor-tqhtilc vessel. Proximally there is less than 30% stenosis. The vess el then gives a large caliber diagonal which has ostial to proximal 40% stenosis. The mid LAD has diffuse up to 30 to 40% stenosis while the distal vessel has no more than mild luminal irregularities. Jmwnm-tmmxa-zdpfrhd vessel with no more than mild luminal irregularities. WUf-cyxwo-vmrrjnh dominant vessel. Travels in the AV groove giving a small OM1, a large branching OM 2, this is followed by an atrial branch and then a large branching posterior lateral before finally terminating in a large branching PDA. There is no more than mild plaques and mild luminal irregularities in the circumflex and its branches. RCA-this is large caliber and nondominant. Proximal 50% stenosis. Note: Patient has SLUGGISH FLOW throughout both the left and right coronary systems. Summary: 1. Diffuse mild to borderline moderate coronary disease as described. 2. Diffuse sluggish coronary flow 3. Recommend guideline directed medical therapy for secondary prevention of coronary artery disease to include; low-dose aspirin, high intensity statin therapy, beta-rakesh, plus or minus NAVDEEP inhibitor/ARB as tolerated. Suspect some degree of microvascular dysfunction so a long-acting nitrate may be helpful. Hemodynamics Rest Ao:: 121/100 mmHg Final Ao: 123/102 mmHg LV: Not performed Recommendations Recommendations: Medical Therapy and/or Counseling Radiation Exposure (mGy) 1100 mGy, fluoroscopy time 1.5 minutes Contrast (mls) 90 mL Anesthesia 1 mg IV Versed, 25 mcg IV fentanyl Procedural Complication(s) None Disposition Recovery Room\PACU I attest to the content of the Intraoperative Record and any orders documented therein. Any exceptions are noted below. [facility] Card Cath Procedure Codes Cardiac Catheterization Procedure 1: Cardiovascular Cath Procedures: 25141 Coronaries Moderate Sedation Procedure 1: Sedation/Anesthesia: 73193 Mod Sedation by the same physician;Init15 Min Child Age 5 & Up (Start 1055, End 1107) PG Care Time/CCT Total # of Minutes Spent Total Time Spent with Patient: Total time spent is greater than 50% in coordination of care (as documented) at patient's floor/unit and/or counseling patient:
== END 2023-03-26 15:30 | disposition home or self-care (01) | DRG 281 ==
LOC: ED 10:31 → 2S 13:55 → SUATTDRO 13:55 → 2S 14:43
PROC: CLB.CCO (2023-03-26 10:00)